=== PATIENT | female | born 1975 | race Hispanic/Latino ===

== ENCOUNTER 2017-03-13 07:42 | Outpatient (CLI) | payer BC ==
--- NOTE | 2017-03-13 13:20 | Mammography Report ---
BILATERAL DIGITAL SCREENING MAMMOGRAM with CAD and 3-D TOMOSYNTHESIS: 03/13/17 CLINICAL: Routine screening. COMPARISON:03/09/16 FINDINGS: The breasts are heterogeneously dense, which may obscure small masses.Right asymmetries and left retroareolar architectural distortion on tomosynthesis series require additional imaging. No suspicious calcifications. IMPRESSION: Right asymmetries and left architectural distortion requiring further workup. BI-RADS CATEGORY: 0--Needs Additional Imaging RECOMMENDATION: Recall for bilateral spot views and bilateral breast ultrasound. COMMENT: Patient follow-up letters are generated by our [employer] application.
== END 2017-03-13 07:43 | disposition home or self-care (01) ==
LOC: MAMMO 07:42
PROVIDERS: ATTEND Obstetrics & Gynecology
DX: Z12.31 Encounter for screening mammogram for malignant neoplasm of breast (principal)
CPT/HCPCS: 77063; G0202; 77067

== ENCOUNTER 2017-04-13 08:15 | Outpatient (CLI) | payer BC ==
--- NOTE | 2017-04-13 10:24 | Mammography Report ---
Bilateral mammogram and bilateral compression lateral view is performed. ultrasound: Patient is recalled for bilateral asymmetries on recent screening ben BI-RADS CATEGORY: 3 = Probably benign ACR BI-RADS MAMMOGRAPHIC CODES: 0 = Needs additional imaging evaluation; 1 = Negative; 2 = Benign; 3 = Probably benign; 4 = Suspicious; 5 = Malignant; 6 = Known biopsy-proven malignancy COMMENT: 1. Dense breast tissue, i.e., adenosis, fibrocystic changes, etc., may obscure an underlying neoplasm. 2. Approximately 10% of cancers are not detected with mammography. 3. A negative mammography report should not delay biopsy if a clinically suspicious mass is present. The mammogram. On the left side magnification CC, rolled medial and lateral CC views, and whole breasts lateral compression view is performed. The area of architectural distortion seen on the screening exam cannot be reproduced on these images. It is of note however that the patient has numerous clusters of microcalcifications in the same region. CC and lateral compression views of the right nodular densities in no additional information and are less well-visualized. Comparison with her 2016 exam does not appear to indicate a significant change in the parenchymal pattern of either breast. Right breast ultrasound demonstrates an echo lucent 2.5 cm circumscribed nodule in the 10:00 location 3 cm from the nipple. In the 10:00 location approximately 11 cm from nipple there is a 15 mm mm nodule with echogenic center consistent with a lymph node. These findings appear relatively consistent in size and location with the mammographic nodules. Left breast ultrasound in the area of architectural distortion shows no findings. Impressions: 1. There are no suspicious findings in the right breast either on mammography or ultrasound. 2. The architectural distortion on the left cannot be recreated on the additional images. The calcifications are not overtly suspicious but do warrant followup. Recommendations: Repeat ben mammogram of the left breast in 6 months to reevaluate architectural change as well as magnification views to reevaluate calcifications. The findings and recommendations have been thoroughly discussed with the patient.
== END 2017-04-13 08:16 | disposition home or self-care (01) ==
LOC: MAMMO 08:15
PROVIDERS: ATTEND Obstetrics & Gynecology Gynecology
DX: N63.10 Unspecified lump in the right breast, unspecified quadrant (principal); R92.0 Mammographic microcalcification found on diagnostic imaging of breast
CPT/HCPCS: 77066

== ENCOUNTER 2017-04-14 08:56 | Emergency (ER) | payer BC ==
--- NOTE | 2017-04-14 10:38 | Emergency Department Report ---
- General Chief Complaint: Upper Respiratory Infection Stated Complaint: COLD SX Time Seen by Provider: 04/14/17 10:21 Source: patient Mode of arrival: Ambulatory Limitations: No Limitations - History of Present Illness Initial Comments: 42-year-old female with no significant past medical history presents also complains of cold symptoms 2 weeks. Patient has a nonproductive cough and had intermittent wheezing which has improved. Now patient has residual nasal congestion, dark yellow nasal mucous, and facial pressure and pain. Patient also complains of pain and pressure to bilateral ears. No complaints of fever or shortness of breath. No recent antibiotic use. Patient taking over-the- counter medication like Motrin, Sudafed, Mucinex, and NyQuil without improvement. She presents with elevated blood pressure denies past medical history of hypertension. States her blood pressure and employee health in February was normal range. - Related Data Previous Rx's Medication Instructions Recorded Last Taken Type Amoxicillin/K Clav Tab [Augmentin 1 tab PO Q12HR #20 tab 04/14/17 Unknown Rx 875 mg] Sodium Chloride [Saline Nasal 2 sprays NS PRN PRN #1 bottle 04/14/17 Unknown Rx Lanexa] Allergies Allergy/AdvReac Type Severity Reaction Status Date / Time No Known Allergies Allergy Unverified 03/09/16 07:40 ED Review of Systems ROS: Stated complaint: COLD SX Other details as noted in HPI Comment: All other systems reviewed and negative Other: Constitutional: No fevers chills or weight loss Eyes: No eye pain visual changes or discharge ENT: As per HPI Neck: Denies pain Respiratory: Denies cough wheezing shortness of breath Cardiovascular: Denies chest pain, palpitations, syncope GI: Denies abdominal pain, nausea, vomiting, diarrhea : Denies dysuria Musculoskeletal: Denies back pain Skin: Denies rash, lesions, erythema Neurologic: Denies headache, numbness, weakness Psychiatric: Denies suicidal ideation, hallucinations ED Past Medical Hx - Past Medical History Previous Medical History?: No - Surgical History Past Surgical History?: Yes Hx Cholecystectomy: Yes Additional Surgical History: tubal ligation. hysterectomy - Social History Smoking Status: Never Smoker Substance Use Type: None - Medications Home Medications: Home Medications Medication Instructions Recorded Confirmed Last Taken Type Amoxicillin/K Clav Tab [Augmentin 1 tab PO Q12HR #20 tab 04/14/17 Unknown Rx 875 mg] Sodium Chloride [Saline Nasal 2 sprays NS PRN PRN #1 bottle 04/14/17 Unknown Rx Lanexa] ED Physical Exam - General Limitations: No Limitations - Other Other exam information: General: No limitations, patient is alert in no acute distress Head exam: Atraumatic, normocephalic Eyes exam: Normal appearance ENT: Moist mucous membrane, normal oropharynx, no exudates, nasal congestion, maxillary and frontal sinus tenderness on palpation. Good light reflex left ear. Poor light reflex with erythema to right ear Neck exam: Normal inspection, full range of motion Respiratory exam: Clear to auscultation bilateral, no wheezes, rales, crackles Cardiovascular: Normal rate and rhythm, normal heart sounds Abdomen: Soft, nondistended, and nontender, with normal bowel sounds, no rebound, or guarding Extremity: Full range of motion normal inspection no deformity Back: Normal Inspection, full range of motion, no tenderness Neurologic: Alert, oriented x3, cranial nerves intact, no motor or sensory deficit Psychiatric: normal affect, normal mood Skin: Warm, dry, intact ED Course Vital Signs 04/14/17 04/14/17 09:20 10:31 Temperature 98.3 F Pulse Rate 100 H 93 H Respiratory 18 16 Rate Blood Pressure 179/84 189/96 O2 Sat by Pulse 100 99 Oximetry ED Medical Decision Making - Medical Decision Making Patiently placed on antibiotics for acute sinus disease medication for symptomatic treatment. Initial blood pressure remains elevated in the ED. She denies history as stated blood pressure November was normal. Patient prefers not to be placed on blood pressure minute this time. I encouraged patient to discontinue [id number] medication and only take Coricidin HBP brands. Saline nasal spray prescribed for nasal congestion. Patient encouraged to take a log of her blood pressure readings and follow with the primary care doctor for further management. - Differential Diagnosis URI, bronchitis, sinusitis, otitis Critical Care Time: No Critical care attestation.: If time is entered above; I have spent that time in minutes in the direct care of this critically ill patient, excluding procedure time. ED Disposition Clinical Impression: Acute sinus infection, URI (upper respiratory infection), Right otitis media, Elevated blood pressure reading Disposition: TO HOME OR SELFCARE Is pt being admited?: No Does the pt Need Aspirin: No Condition: Stable Instructions: Sinusitis (ED), Otitis Media (ED), How to Take a Blood Pressure (ED) Additional Instructions: Take the medication as prescribed. Discontinue your use of recurrent over-the- counter cough and cold medicine particularly medications that contains Sudafed. If you take rqni-cba-jdxvbjn cough and cold medications please only take the Coricidin HBP brand because this is safe in people with elevated blood pressure/ hypertension. Over the next several days continue to log a monitoring of blood pressure. Follow-up with your primary care doctor for further evaluation. If your blood pressure remains high after your ER visit and after discontinuing these medications you will need to be placed on blood pressure medication. Return if symptoms worsen Prescriptions: Amoxicillin/K Clav Tab [Augmentin 875 mg] 1 tab PO Q12HR #20 tab Sodium Chloride [Saline Nasal Lanexa] 2 sprays NS PRN PRN #1 bottle PRN Reason: Nasal Congestion Referrals: MAMADOU LEYVA MD [Staff Physician] - 2-3 Days Time of Disposition: 10:58
[2017-04-14] MEDS ORDERED: AUGMENTIN 875 MG PO ONE (10:40)
[2017-04-14 10:48] VITALS: BP 189/96
== END 2017-04-14 11:14 | disposition home or self-care (01) ==
LOC: ED 08:56
DX: J01.90 Acute sinusitis, unspecified (principal); R03.0 Elevated blood-pressure reading, without diagnosis of hypertension
CPT/HCPCS: 99282

== ENCOUNTER 2017-10-02 10:41 | Outpatient (CLI) | payer BC ==
--- NOTE | 2017-10-02 14:40 | XRay Report ---
CHEST 2 VIEWS INDICATION: Hypertension. COMPARISON: None similar. FINDINGS: PA and lateral chest radiographs demonstrate normal cardiomediastinal silhouette. Clear lungs. Demineralized bones with multilevel thoracic spondylosis and minimal kyphosis. Possible cholecystectomy clips. CONCLUSION: No acute chest process, as described. Thank you for the opportunity to participate in this patient's care.
== END 2017-10-02 10:42 | disposition home or self-care (01) ==
LOC: CARD 10:41
DX: I10 Essential (primary) hypertension (principal); Z90.49 Acquired absence of other specified parts of digestive tract; Z90.710 Acquired absence of both cervix and uterus
CPT/HCPCS: 71046; 93005; 93010

== ENCOUNTER 2019-03-13 14:17 | Outpatient (CLI) | payer BC ==
--- NOTE | 2019-03-18 09:47 | Mammography Report ---
DIGITAL DIAGNOSTIC MAMMOGRAM WITH TOMOSYNTHESIS WITH CAD, 03/13/2019 INDICATION: Routine Screening Mammography. TECHNIQUE: Digital bilateral 2D and 3D mammography with tomosynthesis was obtained in the craniocau eros and mediolateral oblique projections. Computer-Aided Detection (CAD) analysis was used for inter pretation of this study. COMPARISON: 04/13/2017, 03/13/2017 and 03/09/2016 FINDINGS: Breast Density: The breasts are heterogeneously dense, which may obscure small masses. A group of left upper inner calcifications are probably benign and would be difficult to target for s tereotactic biopsy. No mass or architectural distortion of the left breast. There is no evidence of d ominant mass, suspicious calcifications or architectural distortion in the right breast. IMPRESSION: Probably benign left calcifications. Recommend 6 month follow-up left diagnostic mammogra m with magnification views of calcifications. Recommend routine screening of the right breast. Follow up recommendation: Short term follow up in 6 months. BI-RADS Category 3: Probably Benign A "normal" or negative report should not discourage follow up or biopsy of a clinically significant f inding. A written summary of these findings will be mailed to the patient. The patient will be entered into a mammography reporting system which will generate a reminder letter for the patient's next appointmen t at the appropriate interval. The [employer] recommends yearly mammograms starting at age 40 and continuing as l junito as a woman is in good health. Breast MRI is recommended for women with an approximate 20-25% or greater lifetime risk of breast cancer, including women with a strong family history of breast or ova rashi cancer or who have been treated for Hodgkin's disease. Signer Name: Yasir Ramos MD Signed: 03/18/2019 9:43 AM Workstation Name: [id number]
== END 2019-03-13 14:18 | disposition home or self-care (01) ==
LOC: SPVWC 14:17
PROVIDERS: ATTEND Internal Medicine
DX: R92.8 Other abnormal and inconclusive findings on diagnostic imaging of breast (principal)
CPT/HCPCS: 77066; G0279

== ENCOUNTER 2020-05-13 10:17 | Outpatient (CLI) | payer BC ==
--- NOTE | 2020-05-13 10:57 | XRay Report ---
CHEST 2 VIEWS INDICATION / CLINICAL INFORMATION: COUGH. COMPARISON: 10/02/2018 FINDINGS: SUPPORT DEVICES: None. HEART / MEDIASTINUM: No significant abnormality. LUNGS / PLEURA: Mild increased interstitial prominence in the perihilar regions may be vascular. No f ocal consolidation. No pneumothorax. ADDITIONAL FINDINGS: No significant additional findings. IMPRESSION: 1. No acute findings. Signer Name: Checo Martin MD Signed: 05/13/2020 10:53 AM Workstation Name: [id number]
== END 2020-05-13 10:18 | disposition home or self-care (01) ==
LOC: XRAY 10:17
PROVIDERS: ATTEND Internal Medicine
DX: R05 Cough (principal)
CPT/HCPCS: 71046